=== PATIENT | female | born 1995 | race Caucasian/White ===

== ENCOUNTER 2017-07-03 09:20 | Inpatient (IN) | payer MEDICAID ==
[2017-07-03 20:24] VITALS: BMI 35.1
[2017-07-03 21:12] LABS: RBC URINE 8 /hpf (0-3); URINE BACTERIA MANY (<OCC); URINE BILIRUBIN NEGATIVE (NEGATIVE); URINE BLOOD NEGATIVE (NEGATIVE); URINE COLOR Yellow (YELLOW); URINE GLUCOSE (UA) NORMAL (Normal); URINE KETONE NEGATIVE (NEGATIVE); URINE LEUKOCYTE ESTERASE 3+ Leu/uL (Negative); URINE PROTEIN 1+ mg/dL (NEGATIVE); URINE UROBILINOGEN NORMAL mg/dL (0.2-1.0); WBC URINE 57 /hpf (0-5)
[2017-07-03 21:14] LABS: BASO % 0.4 % (0.0-2.0); EOS % 0.5 % (0.0-4.0); HEMATOCRIT 33.1 % (34.0-47.0); LYMPH # 2.4 K/uL (1.0-4.3); MEAN CELL VOLUME 62.4 fL (81.0-99.0); MEAN CORPUSCULAR HEMOGLOBIN 19.9 pg (27.0-31.0); MEAN PLATELET VOLUME 10.7 fL (7.2-11.7); MONO # 0.6 K/uL (0.0-0.8); MONO % 6.2 % (0.0-10.0); NRBC % 0.2 % (0.0-2.0); RED CELL DISTRIBUTION WIDTH 16.5 % (11.5-14.5); WHITE BLOOD COUNT 9.4 K/uL (4.8-10.8)
--- NOTE | 2017-07-03 21:14 | OBADHP ---
Datetime: 07/03/2017 21:09 Admit Comment, IP Provider: chief complaint-induction of labor HPI 22y/o at 40.5 wga here for iduction of labor.Denie snausea, vomiting, headache, chest [place] n, shortness of breath course uncomplicated PMH denies PSH denies OBGYN HX Social hx denies tobacco,alcohol or illicit drug use Exam see exam section A/P 22 y/o at 40.5 wga here for induction of labor.GBS neg -admit -cervidil place -monitor closely Pelvic Type - PN: Adequate Extremities - PN: Normal Abdomen - PN: Normal Back - PN: Normal Lungs - PN: Normal Heart - PN: Normal Neurologic - PN: Normal General - PN: Normal Contraction Comments Provider: occ Gestation - Est Wks by US: 40.5 IP Hx Assessment: The History has been Reviewed and is Current Vital Signs Provider: Reviewed; Within Normal Limits IP Chief Complaint: Scheduled induction of labor FHR Category Provider Fetus A: Category I Dilatation, Provider: 1 Effacement, Provider: 50 Station, Provider: -3 Genitourinary Exam: Normal DTRs - PN: Normal EGA AdmitDate IP: 40.5 IP Adm Impression: Postterm, intrauterine IP Admit Plan: Admit to unit; Initiate labor induction protocol
[2017-07-03 21:17] LABS: CHLORIDE 104 mmol/L (98-107); POTASSIUM 3.8 mmol/L (3.6-5.2); SODIUM 133 mmol/L (132-148)
[2017-07-03 21:19] LABS: AST/SGOT 14 U/L (14-36); BILIRUBIN,TOTAL 0.7 mg/dL (0.2-1.3); CARBON DIOXIDE 20 mmol/L (22-30); GFR AFRICAN-AMERICAN > 60
[2017-07-03 21:20] LABS: ALB/GLOB RATIO 0.9 (1.0-2.1); ALKALINE PHOSPHATASE 101 U/L (38-126); ALT/SGPT 24 U/L (9-52); BLOOD UREA NITROGEN 7 mg/dL (7-17); GLUCOSE,RANDOM 83 mg/dL (65-105); TOTAL PROTEIN 6.3 g/dL (6.3-8.3)
[2017-07-03 21:21] LABS: CALCIUM 8.2 mg/dl (8.6-10.4)
[2017-07-04] MEDS ORDERED: Oxytocin 30 UNIT 30 UNITS/500 ML BAG IV PRN ×2 (07:59→17:22)
[2017-07-04] MEDS ORDERED: Nalbuphine 20 mg/ml Inj (1 ml) IVP PRN (08:00)
--- NOTE | 2017-07-04 08:05 | OBPN ---
Datetime: 07/04/2017 08:01 IP Progress Plan Other: cervidil removed IP Procedures: Sterile Vag Exam FHR - Baseline A Provider: 130 IP Progress Note Comment: pt was examined at bed side ve 50/-3 cervidil removed anticipate NICHD Accel Fetus A IP Provider: 15X15 FHR Category Provider Fetus A: Category I NICHD Variability Prov Fetus A: Moderate 6-25bpm Dilatation, Provider: 1 Effacement, Provider: 50 Station, Provider: -3 Datetime: 07/03/2017 21:09 Contraction Comments Provider: occ Gestation - Est Wks by US: 40.5 Vital Signs Provider: Reviewed; Within Normal Limits
[2017-07-04] MEDS ORDERED: Nalbuphine 20 mg/ml Inj (1 ml) ONE (13:26)
--- NOTE | 2017-07-04 17:25 | OBPN ---
Datetime: 07/04/2017 17:22 IP Progress Impression: Normal progression of labor IP Procedures: Sterile Vag Exam IP Progress Plan: Augmentation FHR - Baseline A Provider: 120 IP Progress Note Comment: pt was examined at bed side ve 1-2/60/-2 start pitocin pain angelita antiipate Vital Signs Provider: Reviewed; Within Normal Limits NICHD Accel Fetus A IP Provider: 15X15 FHR Category Provider Fetus A: Category I NICHD Variability Prov Fetus A: Moderate 6-25bpm Dilatation, Provider: 2 Effacement, Provider: 60 Station, Provider: -2
[2017-07-04] MEDS ORDERED: Oxytocin 30 UNIT 30 UNITS/500 ML BAG IV ONE (17:38)
[2017-07-04] MEDS ORDERED: Bupivacaine 0.125%/FentaNYL 200 ML EPI ONE (18:53)
[2017-07-04] MEDS ORDERED: Bupivacaine 0.25% Inj(30mL) ONE (19:17)
--- NOTE | 2017-07-04 19:35 | OBPN ---
Datetime: 07/04/2017 19:30 IP Progress Impression: Normal progression of labor IP Procedures: Sterile Vag Exam Contraction Comments Provider: q1-4 FHR - Baseline A Provider: 130 IP Progress Note Comment: pt was seen at bed side ve 3/80/-2 cont pitocin anticipate Vital Signs Provider: Reviewed; Within Normal Limits NICHD Accel Fetus A IP Provider: 15X15 FHR Category Provider Fetus A: Category I NICHD Variability Prov Fetus A: Moderate 6-25bpm Dilatation, Provider: 3 Effacement, Provider: 80 Station, Provider: -2
--- NOTE | 2017-07-05 01:27 | OBDS ---
MATERNAL INFORMATION Estimated Blood Loss (ml): 300 Provider Comments: baby deliverd in [place]. end clean rml reapired no com LABOR SUMMARY EDC: 06/28/2017 00:00 No. Babies in Womb: 1 LABOR INFORMATION Onset of Labor: 07/04/2017 03:31 Cervical Ripening Agents: Cytotec @ (Annotations: 50 mcg PO) Group B Beta Strep: Negative MEMBRANES Membranes Rupture Method: Spontaneous Rupture of Membranes: 07/04/2017 18:00 Length of Rupture (hrs): 7.23 Amniotic Fluid Color: Clear Amniotic Fluid Amount: Small STAGES OF LABOR Stage 3 hrs: 0 Stage 3 min: 1 Total Time in Labor hrs: 21 Total Time in Labor min: 44 VAGINAL DELIVERY Episiotomy: Right Mediolateral Laceration Extension: N/A Laceration Type: None Sponge Count Correct: Yes Sharps Count Correct: Yes BABY A INFORMATION Infant Delivery Date/Time: 07/05/2017 01:14 Method of Delivery: Vaginal Born in Route : No : N/A Forceps: N/A Vacuum Extraction: N/A Shoulder Dystocia : No SHOULDER DYSTOCIA BABY A Delivery Date/Time: 07/05/2017 01:14 PRESENTATION/POSITION BABY A Presentation: Cephalic Cephalic Presentation: Vertex Vertex Position: Left Occipital Anterior Breech Presentation: N/A PLACENTA INFORMATION BABY A Placenta Delivery Time : 07/05/2017 01:15 Placenta Method of Delivery: Spontaneous Placenta Status: Delivered INFORMATION BABY A Gestational Age at Delivery: 41.0 Gestational Status: Term Infant Outcome : Liveborn Condition : Stable Sex: Female IDENTIFICATION/MEDS BABY A ID Band Number: [id number] Sensor Number: [id number] WEIGHT/LENGTH BABY A Birthweight (gms): 3625 Infant Weight (lb): 8 Infant Weight (oz): 0 Length Inches: 19.50 Infant Length cms: 49.5
[2017-07-05] MEDS ORDERED: Oxytocin 30 UNIT 30 UNITS/500 ML BAG IV SCH (01:30)
[2017-07-05] MEDS: Benzocaine/Menthol 20%-0.5% Topical Spray (60 ml) TOP PRN (05:04)
[2017-07-05] MEDS: Oxycodone/Acetaminophen 5/325 mg Tab PO PRN (17:35)
[2017-07-06 09:39] LABS: BASO % 0.3 % (0.0-2.0); EOS # 0.1 K/uL (0.0-0.7); EOS % 0.5 % (0.0-4.0); HEMATOCRIT 27.6 % (34.0-47.0); LYMPH # 2.3 K/uL (1.0-4.3); MEAN CELL VOLUME 62.8 fL (81.0-99.0); MEAN CORPUSCULAR HEMOGLOBIN 19.6 pg (27.0-31.0); MEAN CORPUSCULAR HGB CONC 31.3 g/dL (33.0-37.0); MONO # 0.8 K/uL (0.0-0.8); MONO % 6.8 % (0.0-10.0); RED CELL DISTRIBUTION WIDTH 16.8 % (11.5-14.5); WHITE BLOOD COUNT 11.6 K/uL (4.8-10.8)
--- NOTE | 2017-07-06 09:54 | OBPPN ---
Datetime: 07/06/2017 09:46 PP Pain Prov: Within normal limits PP Nausea Prov: Denies PP Flatus Prov: Yes PP Breasts Prov: Normal PP Heart Prov: Normal PP Lungs Prov: Normal PP Abdomen/Uterus Prov: Normal PP Lochia Prov: Normal PP Vulva/Perineum Prov: Normal PP CVA Tenderness Prov: Normal PP Extremities Prov: Normal PP C/S Incision Prov: Not Applicable PP Progress Prov: Normal PP Comments Phys Exam Prov: Abd: Soft, NT, BS- present UT- Firm PP Impression Prov: Normal progression PP Plan Prov: Continue present management PP Progress Note Prov: S/P , Clinically Stable Plan: Continue care.
[2017-07-06] MEDS: Benzocaine/Menthol 20%-0.5% Topical Spray (60 ml) TOP PRN (11:39)
[2017-07-06] MEDS: Oxycodone/Acetaminophen 5/325 mg Tab PO PRN ×3 (11:44→20:46)
[2017-07-07 00:05] VITALS: RESP 18
[2017-07-07 17:05] VITALS: BP 120/76; PULSE 83; TEMP 98.9; O2SAT 98
--- NOTE | 2017-07-07 18:04 | OBPPN ---
Datetime: 07/07/2017 17:58 PP Nausea Prov: Denies PP Flatus Prov: Yes PP BM Prov: Yes PP Breasts Prov: Normal PP Heart Prov: Normal PP Lungs Prov: Normal PP Abdomen/Uterus Prov: Normal PP Lochia Prov: Normal PP Vulva/Perineum Prov: Not Done PP CVA Tenderness Prov: Normal PP Extremities Prov: Normal PP C/S Incision Prov: Not Applicable PP Progress Prov: Normal PP Comments Phys Exam Prov: Abdomen: Soft. Non distended. Fundus firm, mobile, non tender - 2 FB bel ow umbilicus. Minimal lochia rubra. All other systems reviewed and are negative PP Impression Prov: Normal progression PP Plan Prov: Discharge PP Progress Note Prov: Patient received in [facility] in room 455; seen at approximately 09[address] Her mother present attending to . Denies nausea, vomiting; ambulating and voiding withou t difficulty. exclusively. P.E.: as above. WD in NAD. Awake, alert, oriented to time, person and place. Pleasant and sharmila ative. - PPD#1 H/H 8.6/22.6; Rh (+) Assessment: PPD#2, 22 y.o. P1, S/P . Afebrile; vital signs stable. Chronic anemia - asymptoma tic; hemodynamically stable. Unsure as to method of contraception. Clinically stable. Plan: 1) Discharge home 2) See full discharge instructions Vital Signs Provider PP: Reviewed; Within Normal Limits
--- NOTE | 2017-07-07 22:20 | OBDCSUM ---
Datetime: 07/07/2017 08:53 Discharge Instructions, Provider: Routine instructions given Discharge Diagnosis, Provider: Term Delivered Contraception discussed, Prov: Yes Discharge Diagnosis Prov Other: Chronic anemia Contraception counseling Contraception after Delivery: Undecided
== END 2017-07-07 12:55 | disposition home or self-care (01) | DRG 373 ==
LOC: C.4D 20:09 → C.4M 07-05 03:50
PROVIDERS: ADMIT Obstetrics & Gynecology; ATTEND Obstetrics & Gynecology
PROC: 3E0P7GC Introduction of Other Therapeutic Substance into Female Reproductive, Via Natural or Artificial Opening (ICD-10-PCS; 2017-07-04)
PROC: 10E0XZZ Delivery of Products of Conception, External Approach (ICD-10-PCS; principal; 2017-07-05)
PROC: 0W8NXZZ Division of Female Perineum, External Approach (ICD-10-PCS; 2017-07-05)
DX: O48.0 Post-term pregnancy (principal); O99.02 Anemia complicating childbirth; D64.9 Anemia, unspecified; Z3A.41 41 weeks gestation of pregnancy; Z37.0 Single live birth

== ENCOUNTER 2018-11-23 05:39 | Inpatient (IN) | payer MEDICAID ==
[2018-11-23 06:17] VITALS: BMI 27.1
[2018-11-23] MEDS ORDERED: Lactated Ringer's 1,000 ML IV ONE (06:17)
--- NOTE | 2018-11-23 06:24 | OBADHP ---
Datetime: 11/23/2018 06:18 Admit Comment, IP Provider: A/P: at 39+1 with EDC 11/29/18 admitted for labor - multigravida - GBS negative - for epidural - expectant mgmt FHR - Baseline A Provider: 120 Membranes, Provider: Intact Contraction Comments Provider: q4 Gestation - Est Wks by US: 39+1 Vital Signs Provider: Reviewed; Within Normal Limits IP Chief Complaint: Uterine contractions NICHD Variability Prov Fetus A: Moderate 6-25bpm NICHD Accel Fetus A IP Provider: 15X15 FHR Category Provider Fetus A: Category I NICHD Decel Fetus A IP Provider: None Dilatation, Provider: 5 Effacement, Provider: 80 Station, Provider: -2 EGA AdmitDate IP: 39.1 IP Adm Impression: Term, intrauterine ; Active labor IP Admit Plan: Admit to unit
[2018-11-23] MEDS ORDERED: Lactated Ringer's 1,000 ML IV SCH (06:30)
[2018-11-23 07:00] LABS: BASO # 0.1 K/uL (0.0-0.2); BASO % 0.6 % (0.0-2.0); EOS % 0.5 % (0.0-4.0); HEMOGLOBIN 9.7 g/dL (11.0-16.0); LYMPH # 2.6 K/uL (1.0-4.3); LYMPH % 24.8 % (20.0-40.0); MEAN CELL VOLUME 59.6 fL (81.0-99.0); MEAN CORPUSCULAR HGB CONC 31.9 g/dL (33.0-37.0); MEAN PLATELET VOLUME 9.4 fL (7.2-11.7); MONO # 0.7 K/uL (0.0-0.8); MONO % 6.4 % (0.0-10.0); NEUT % 67.7 % (50.0-75.0); NRBC % 0.1 % (0.0-2.0); RBC 5.09 Mil/uL (3.80-5.20); WHITE BLOOD COUNT 10.3 K/uL (4.8-10.8)
[2018-11-23] MEDS ORDERED: Bupivacaine HCl/FentaNYL Cit 100 ML EPI ONE (07:31)
--- NOTE | 2018-11-23 10:35 | OBDS ---
DELIVERY PERSONNEL Delivery Doctor: Deric Hernandez MD Delivery Crew Member: Kacey Grimm RN Anesthesiologist: nathalia MATERNAL INFORMATION Delivery Anesthesia: Epidural Medications in Delivery: pitocin 20 Placenta Cultured: No Maternal Complications: None Provider Comments: baby deliverd in [place]. endometruim clean 9/9 no com LABOR SUMMARY EDC: 11/29/2018 00:00 LABOR INFORMATION Onset of Labor: 11/23/2018 04:30 Group B Beta Strep: Negative MEMBRANES Membranes Rupture Method: Artificial Rupture of Membranes: 11/23/2018 09:34 Length of Rupture (hrs): 0.82 Amniotic Fluid Color: Light Meconium Amniotic Fluid Amount: Moderate Amniotic Fluid Odor: None VAGINAL DELIVERY Episiotomy: None Laceration Extension: Second Degree Laceration Type: None Laceration Repair Note: repaired BABY A INFORMATION Infant Delivery Date/Time: 11/23/2018 10:23 Method of Delivery: Vaginal Born in Route : No : N/A Forceps: N/A Vacuum Extraction: N/A Shoulder Dystocia : No SHOULDER DYSTOCIA BABY A Infant Delivery Date/Time: 11/23/2018 10:23 PRESENTATION/POSITION BABY A Presentation: Cephalic Cephalic Presentation: Vertex Vertex Position: Left Occipital Anterior Breech Presentation: N/A PLACENTA INFORMATION BABY A Placenta Method of Delivery: Spontaneous Placenta Status: Delivered SCORES BABY A Heart Rate 1 min: >100 bpm Resp Effort 1 min: Good Cry Reflex Irritability 1 min: Cough or Sneeze or Pulls Away Muscle Tone 1 min: Active Motion Color 1 min: Body [place], Extremities Blue Resuscitation Effort 1 min: Tactile Stimulation SCORE 1 MIN: 9 Heart Rate 5 min: >100 bpm Resp Effort 5 min: Good Cry Reflex Irritability 5 min: Cough or Sneeze or Pulls Away Muscle Tone 5 min: Active Motion Color 5 min: Body [place], Extremities Blue SCORE 5 MIN: 9 INFORMATION BABY A Gestational Age at Delivery: 39.0 Gestational Status: Term Outcome : Liveborn Infant Condition : Stable Sex: Male IDENTIFICATION/MEDS BABY A ID Band Number: [id number] ID Band Location: Left Leg; Left Arm Sensor Applied: Yes Sensor Number: [id number] Sensor Location : Cord Clamp WEIGHT/LENGTH BABY A Birthweight (gms): 3880 Infant Weight (lb): 8 Weight (oz): 9 Infant Length Inches: 20.50 Infant Length cms: 52.1 CORD INFORMATION BABY A No. Cord Vessels: 3 Nuchal Cord : Around Neck x1, Loose Cord Blood Taken: Yes Suction: Mouth; Nose ASSESSMENT BABY A Infant Complications: None Physical Findings at Delivery: Within Normal Limits Respirations: Appears Normal Ecg Technician/ALS Called : No Care By: dr buchanan Transferred To: Remains with Mother
[2018-11-23] MEDS ORDERED: Benzocaine/Menthol 20%-0.5% Topical Spray (60 ml) TOP PRN (12:00)
[2018-11-23] MEDS: Oxycodone/Acetaminophen 5/325 mg Tab PO PRN ×2 (16:39→22:00)
[2018-11-24] MEDS: Oxycodone/Acetaminophen 5/325 mg Tab PO PRN (04:42)
[2018-11-24 08:02] LABS: BASO # 0.1 K/uL (0.0-0.2); BASO % 1.2 % (0.0-2.0); EOS # 0.1 K/uL (0.0-0.7); EOS % 0.8 % (0.0-4.0); HEMOGLOBIN 9.5 g/dL (11.0-16.0); LYMPH # 3.3 K/uL (1.0-4.3); LYMPH % 31.5 % (20.0-40.0); MEAN CORPUSCULAR HGB CONC 31.6 g/dL (33.0-37.0); MEAN PLATELET VOLUME 9.1 fL (7.2-11.7); MONO # 0.6 K/uL (0.0-0.8); MONO % 5.9 % (0.0-10.0); NEUT # 6.3 K/uL (1.8-7.0); NEUT % 60.6 % (50.0-75.0); NRBC % 0.1 % (0.0-2.0); RBC 5.01 Mil/uL (3.80-5.20); RED CELL DISTRIBUTION WIDTH 18.7 % (11.5-14.5); WHITE BLOOD COUNT 10.4 K/uL (4.8-10.8)
[2018-11-24] MEDS: Multiple Vitamins Tab PO SCH (09:14)
--- NOTE | 2018-11-24 19:37 | OBPPN ---
Datetime: 11/24/2018 08:59 PP Pain Prov: Within normal limits PP Nausea Prov: Denies PP Flatus Prov: Yes PP BM Prov: No PP Breasts Prov: Normal PP Heart Prov: Normal PP Lungs Prov: Normal PP Abdomen/Uterus Prov: Normal PP Lochia Prov: Normal PP Vulva/Perineum Prov: Normal PP CVA Tenderness Prov: Normal PP Extremities Prov: Normal PP Comments Phys Exam Prov: Fundus firm, non-tender and below Umbilicus PP Impression Prov: Normal progression; difficulties PP Plan Prov: Continue present management; consult PP Progress Note Prov: SUBJECTIVE: Patient was seen and examined at bedside this AM. She reports feeling well and is tolerating regul ar diet without nausea/vomiting. She reports lochia is decreasing. Sh reports flatus but has not had BM yet. OBJECTIVE: Post- H/H 9.530, other normal physical exam findings as above ASSESSEMENT: 23 year old now PPD 1 S/P with chronic iron deficiency anemia. PLAN: Continue breast feeding consult Encouraged patient that she needs to attempt latching every 2 hours Start feosol 325 mg BID. Patient states she was not taking iron antenatally Continue bowel regimen with colace/senekot Advised to increase po water intake and fiber in diet Anticipate D/c hme in AM Patient was seen, examined, and plan discussed with Dr. Huang Oakley, DO, PGY-1 I had personnnally seen and examined this patient with Dr Oakley and agree with his A _ [facility]Care. IP PP Procedures: None Vital Signs Provider PP: Reviewed; Within Normal Limits
[2018-11-25] MEDS: Oxycodone/Acetaminophen 5/325 mg Tab PO PRN (03:07)
[2018-11-25] MEDS ORDERED: Hydrocortisone 1% Cream (30 GM) TOP PRN (07:26)
[2018-11-25 09:02] VITALS: BP 108/74; PULSE 74; RESP 20; TEMP 97.6; O2SAT 97
[2018-11-25] MEDS: Multiple Vitamins Tab PO SCH (09:09)
--- NOTE | 2018-11-26 01:45 | OBDCSUM ---
Datetime: 11/25/2018 13:42 Follow up at, Provider: SARAH Follow up in weeks, Provider: 2018 Discharge Comment, Provider: SUBJECTIVE: Patient was seen and examined at bedside this AM. She offer s no new complaints this AM and states she feels ready to go home. Lochia has decreased and she is to lerating regular diet well without nausea/vomiting. She is planning on using control pills afte r discharge. OBJECTIVE: post- H/H 9.5/30, fundal height at umbilicus as expected, otherwise normal exam f indings as above ASSESSEMENT: 23 year old now PPD 2 s/p with chronic iron deficiency anemia PLAN: Discharge home today. Prescription for iron, colace, and ibuprofen given. Follow up with [facility] in 6 weeks. Patient seen, examined, and plan discussed with Dr. Huang Oakley, DO, PGY-1 Contraception after Delivery: Control Pill/Patch
== END 2018-11-25 16:10 | disposition home or self-care (01) | DRG 560 ==
LOC: C.EROB 05:39 → C.4D 06:13 → UNDOADMIN 06:19 → C.4M 12:03
PROVIDERS: ADMIT Obstetrics & Gynecology; ATTEND Obstetrics & Gynecology
PROC: 10E0XZZ Delivery of Products of Conception, External Approach (ICD-10-PCS; principal; 2018-11-23)
PROC: 0KQM0ZZ Repair Perineum Muscle, Open Approach (ICD-10-PCS; 2018-11-23)
PROC: 10907ZC Drainage of Amniotic Fluid, Therapeutic from Products of Conception, Via Natural or Artificial Opening (ICD-10-PCS; 2018-11-23)
DX: O69.81X0 Labor and delivery complicated by cord around neck, without compression, not applicable or unspecified (principal); O99.02 Anemia complicating childbirth; O77.0 Labor and delivery complicated by meconium in amniotic fluid; O70.1 Second degree perineal laceration during delivery; D50.9 Iron deficiency anemia, unspecified; Z3A.39 39 weeks gestation of pregnancy; Z37.0 Single live birth